=== PATIENT | male | born 1970 | race Two or more races ===

== ENCOUNTER 2020-04-30 14:47 | Emergency (ER) | payer MEDICAID, OTHER ==
[~2020-04-30] VITALS: Ht 167.6 cm; Wt 79.4 kg
[2020-04-30 16:11] VITALS: BP 177/98
[2020-04-30] MEDS ORDERED: KETOROLAC TROMETH 60MG/2ML VIAL IM ONE (16:45)
== END 2020-04-30 18:00 | disposition home or self-care (01) ==
LOC: ER 14:53
DX: M54.41 Lumbago with sciatica, right side (principal); R03.0 Elevated blood-pressure reading, without diagnosis of hypertension
CPT/HCPCS: 72100; 96372; 99283; J1885